=== PATIENT | female | born 1980 ===

== ENCOUNTER 2020-09-30 09:23 | Inpatient (IN) | payer OTHER ==
[2020-09-30] MEDS ORDERED: CITRIC ACID/SODIUM CITRATE 30 ML UNIT-DOSE CUP PO ONE ×2 (11:00→13:21)
[2020-09-30] MEDS ORDERED: ELECTROLYTE-148 SOLN 1,000 ML IV ONE (11:00)
[2020-09-30] MEDS ORDERED: ELECTROLYTE-148 SOLN 1,000 ML IV SCH ×2 (11:00→13:30)
[2020-09-30 12:05] VITALS: BMI 29.2
[2020-09-30] MEDS ORDERED: PHENYLEPHRINE HCL 10 MG/1 ML SINGLE DOSE VIAL ONE (13:07)
[2020-09-30] MEDS ORDERED: ePHEDrine SULFATE 50 MG/1 ML AMPULE ONE (13:08)
[2020-09-30] MEDS ORDERED: PROPOFOL 20 ML ONE (13:08)
[2020-09-30] MEDS ORDERED: SUCCINYLCHOLINE CHLORIDE 200 MG/10 ML SYRINGE ONE (13:08)
[2020-09-30] MEDS ORDERED: morphine SULFATE/PF 0.5 MG/ML (2cc Syringe - QUVA) ONE (13:08)
[2020-09-30] MEDS ORDERED: ELECTROLYTE-148 SOLN 500 ML IV ONE (13:20)
[2020-09-30] MEDS ORDERED: morphine SULFATE/PF 0.5 MG/ML (2cc Syringe - QUVA) SPIN ONE (13:45)
[2020-09-30] MEDS ORDERED: OXYTOCIN 10 UNITS/ML VIAL ONE (14:04)
[2020-09-30] MEDS ORDERED: ceFAZolin SODIUM 1 GM VIAL ONE (14:04)
[2020-09-30] MEDS ORDERED: OXYTOCIN 20 UNITS in 0.9% NS 20 UNIT/1,000 ML INFUS.BAG IV ONE (14:59)
[2020-09-30] MEDS ORDERED: ONDANSETRON 4 MG/2 ML VIAL IVPUSH PRN (15:07)
[2020-09-30] MEDS ORDERED: SENNOSIDES/DOCUSATE COMBO (SENNA PLUS) TABLET (UD) PO PRN (15:37)
[2020-09-30] MEDS ORDERED: IBUPROFEN 800 MG/8 ML IJ IVPB PRN (15:37)
[2020-09-30] MEDS ORDERED: METHYLERGONOVINE MALEATE 0.2 MG/1 ML AMP IM PRN (15:37)
[2020-09-30] MEDS ORDERED: oxyCODONE HCL 5 MG TABLET PO PRN ×2 (15:37)
[2020-09-30] MEDS ORDERED: OXYTOCIN 20 UNITS in 0.9% NS 20 UNIT/1,000 ML INFUS.BAG IV SCH (15:45)
[2020-10-01] MEDS: SIMETHICONE 80 MG TAB.CHEW (FP) PO PRN ×2 (08:15→20:35)
[2020-10-01] MEDS: IBUPROFEN 600 MG TABLET (FP) PO PRN ×2 (08:15→20:36)
[2020-10-01] MEDS: ACETAMINOPHEN 325 MG TABLET (FP) PO PRN ×2 (08:16→20:35)
[2020-10-01 09:15] LABS: BASO % 0.1 % (0-2.0); EOS % 0.1 % (0-4.5); HEMATOCRIT 34.7 % (32.4-45.2); HEMOGLOBIN 11.6 GM/dL (10.7-15.3); LYMPH % 11.9 % (8-40); MCHC 33.4 g/dl (32.0-36.0); MEAN CELL VOLUME 89.9 fl (80-96); MEAN PLT VOLUME 8.7 fl (7.5-11.1); MONO % 3.6 % (3.8-10.2); NEUT % 84.3 % (42.8-82.8); PLATELET COUNT 207 10^3/uL (134-434); RBC 3.85 M/mm3 (3.60-5.2); RDW 13.7 % (11.6-15.6); WHITE BLOOD COUNT 15.1 K/mm3 (4.0-10.0)
[2020-10-01] MEDS: PRENATAL VITAMINS W/ FOLIC ACID TABLET (FP) PO SCH (09:25)
[2020-10-01] MEDS ORDERED: LABETALOL HCL 100 MG TABLET (FP) PO SCH (10:00)
[2020-10-01] MEDS ORDERED: BISACODYL 10 MG SUPP.RECT RC PRN (15:37)
[2020-10-02] MEDS: PRENATAL VITAMINS W/ FOLIC ACID TABLET (FP) PO SCH (09:11)
[2020-10-02] MEDS: IBUPROFEN 600 MG TABLET (FP) PO PRN (09:11)
[2020-10-02] MEDS: ACETAMINOPHEN 325 MG TABLET (FP) PO PRN (09:12)
[2020-10-02 10:06] VITALS: BP 128/64; PULSE 101; TEMP 98.3
== END 2020-10-02 14:55 | disposition home or self-care (01) | DRG 783 ==
LOC: JLDR 09:23 → J3W 17:10
PROVIDERS: ADMIT Obstetrics & Gynecology; ATTEND Obstetrics & Gynecology
PROC: 10D00Z1 Extraction of Products of Conception, Low, Open Approach (ICD-10-PCS; principal; 2020-09-30)
PROC: 0UL70ZZ Occlusion of Bilateral Fallopian Tubes, Open Approach (ICD-10-PCS; 2020-09-30)
DX: O34.219 Maternal care for unspecified type scar from previous cesarean delivery (principal); K83.1 Obstruction of bile duct; O26.62 Liver and biliary tract disorders in childbirth; O13.3 Gestational [pregnancy-induced] hypertension without significant proteinuria, third trimester; O32.1XX0 Maternal care for breech presentation, not applicable or unspecified; Z3A.38 38 weeks gestation of pregnancy; Z37.0 Single live birth; Z30.2 Encounter for sterilization
CPT/HCPCS: 36415; 85025; 86850; 86900; 86901; 88302-TC; 88307-TC

== ENCOUNTER 2021-06-29 16:35 | Day surgery (SDC) | payer OTHER ==
[2021-06-29 17:00] VITALS: BMI 27.4
[2021-06-29] MEDS ORDERED: ONDANSETRON 4 MG/2 ML VIAL IVPUSH ONE (17:15)
[2021-06-29] MEDS ORDERED: LACTATED RINGERS SOLUTION 1000 ML INFUS.BAG IV ONE (17:15)
[2021-06-29] MEDS ORDERED: morphine CARPU-JECT 4 MG/1 ML DISP.SYRIN IVPUSH ONE (17:15)
[2021-06-29] MEDS ORDERED: ACETAMINOPHEN 1000 MG/100 ML BAG IVPB ONE (17:15)
[2021-06-29] MEDS ORDERED: morphine SULFATE 4 MG/ML VIAL ONE (17:24)
[2021-06-29] MEDS ORDERED: ACETAMINOPHEN INJECTION 100 ML IVPB ONE (17:24)
[2021-06-29] MEDS ORDERED: ONDANSETRON 4 MG/2 ML VIAL ONE (17:25)
[2021-06-29 18:24] LABS: BASO % 0.2 % (0-2.0); EOS % 0.2 % (0-4.5); HEMOGLOBIN 14.6 GM/dL (10.7-15.3); MCH 28.8 pg (25.7-33.7); MCHC 32.5 g/dl (32.0-36.0); MEAN CELL VOLUME 88.6 fl (80-96); MEAN PLT VOLUME 8.9 fl (7.5-11.1); MONO % 3.1 % (3.8-10.2); NEUT % 86.5 % (42.8-82.8); PLATELET COUNT 296 10^3/uL (134-434); RBC 5.07 M/mm3 (3.60-5.2); RDW 13.7 % (11.6-15.6); WHITE BLOOD COUNT 13.2 K/mm3 (4.0-10.0)
[2021-06-29 18:35] LABS: INR 0.97 (0.83-1.09); PROTHROMBIN TIME (PATIENT) 11.1 SEC (9.7-13.0)
[2021-06-29 18:37] LABS: ACTIVATED PTT 23.5 SECONDS (25.2-36.5)
[2021-06-29 18:45] LABS: CALCIUM 9.8 mg/dL (8.5-10.1)
[2021-06-29 18:46] LABS: ALBUMIN 4.5 g/dl (3.4-5.0); BLOOD UREA NITROGEN 14.1 mg/dL (7-18)
[2021-06-29 18:48] LABS: CREATININE 0.7 mg/dL (0.55-1.3)
[2021-06-29 18:49] LABS: TOT PROT 7.9 g/dl (6.4-8.2)
[2021-06-29 18:50] LABS: BILIRUBIN,TOTAL 0.3 mg/dL (0.2-1)
[2021-06-29] MEDS ORDERED: morphine CARPU-JECT 2 MG/1 ML DISP.SYRIN IVPUSH ONE (19:32)
[2021-06-29] MEDS ORDERED: methylPREDNISolone 8 MG TABLET PO ONE (20:18)
[2021-06-29] MEDS ORDERED: CEFTRIAXONE 1,000 MG in DEXTROSE 5%-WATER - 50 ML IVPB ONE (20:36)
[2021-06-29] MEDS ORDERED: CEFTRIAXONE 1 GM/50 ML BAG ONE (20:50)
[2021-06-29] MEDS ORDERED: LACTATED RINGERS SOLUTION 1,000 ML IV SCH (21:45)
[2021-06-30] MEDS ORDERED: BUPIVACAINE HCL/PF 0.5% (5MG/ML) 10 ML VIAL ONE (08:04)
[2021-06-30 09:10] LABS: BASO % 0.3 % (0-2.0); EOS % 0.2 % (0-4.5); HEMATOCRIT 39.4 % (32.4-45.2); HEMOGLOBIN 13.2 GM/dL (10.7-15.3); LYMPH % 14.5 % (8-40); MCH 29.2 pg (25.7-33.7); MCHC 33.6 g/dl (32.0-36.0); MEAN CELL VOLUME 86.9 fl (80-96); MEAN PLT VOLUME 8.4 fl (7.5-11.1); MONO % 6.7 % (3.8-10.2); NEUT % 78.3 % (42.8-82.8); PLATELET COUNT 245 10^3/uL (134-434); RBC 4.53 M/mm3 (3.60-5.2)
[2021-06-30 10:09] LABS: BLOOD UREA NITROGEN 10.5 mg/dL (7-18)
[2021-06-30 10:10] LABS: MAGNESIUM 2.1 mg/dL (1.8-2.4)
[2021-06-30 10:11] LABS: BILIRUBIN,TOTAL 0.7 mg/dL (0.2-1)
[2021-06-30 10:12] LABS: CREATININE 0.6 mg/dL (0.55-1.3); PHOSPHOROUS 3.5 mg/dL (2.5-4.9); TOT PROT 6.2 g/dl (6.4-8.2)
[2021-06-30 10:19] LABS: ALBUMIN 3.4 g/dl (3.4-5.0)
[2021-06-30] MEDS ORDERED: PROPOFOL 20 ML ONE ×3 (10:49→12:00)
[2021-06-30] MEDS ORDERED: SUCCINYLCHOLINE CHLORIDE 200 MG/10 ML SYRINGE ONE (10:49)
[2021-06-30] MEDS ORDERED: MIDAZOLAM HCL 2 MG/2 ML SINGLE DOSE VIAL ONE ×2 (10:50)
[2021-06-30] MEDS ORDERED: ROCURONIUM BROMIDE 100 MG/10 ML VIAL ONE (11:06)
[2021-06-30] MEDS ORDERED: ceFAZolin SODIUM 1 GM VIAL IVPB ONE ×2 (11:21)
[2021-06-30] MEDS ORDERED: ONDANSETRON 4 MG/2 ML VIAL ONE (11:26)
[2021-06-30] MEDS ORDERED: ceFAZolin SODIUM 1 GM VIAL ONE (11:26)
[2021-06-30] MEDS ORDERED: LIDOCAINE HCL/PF 2% SDV 5ML VIAL ONE (11:26)
[2021-06-30] MEDS ORDERED: DEXAMETHASONE SOD PHOSPHATE 4 MG/1 ML VIAL ONE (11:26)
[2021-06-30] MEDS ORDERED: NEOSTIGMINE METHYLSULFATE 0.5 MG/ML - 10 ML MDV ONE (12:05)
[2021-06-30 12:08] LABS: SARS-CoV-2 NAA Not Detected (Not Detected)
[2021-06-30] MEDS ORDERED: LIDOCAINE HCL 1%, 10 MG/ML (20ML VIAL) NR ONE ×2 (12:14)
[2021-06-30] MEDS ORDERED: BUPIVACAINE HCL/PF 0.5% (5MG/ML) 10 ML VIAL NR ONE ×2 (12:14)
[2021-06-30] MEDS ORDERED: LACTATED RINGERS SOLUTION 1,000 ML IV SCH (12:45)
[2021-06-30] MEDS: LABETALOL HCL 100 MG TABLET (FP) PO SCH (22:01)
[2021-07-01 09:30] LABS: HEMATOCRIT 38.7 % (32.4-45.2); HEMOGLOBIN 13.2 GM/dL (10.7-15.3); MCH 29.9 pg (25.7-33.7); MCHC 34.1 g/dl (32.0-36.0); MEAN CELL VOLUME 87.5 fl (80-96); MEAN PLT VOLUME 8.4 fl (7.5-11.1); PLATELET COUNT 239 10^3/uL (134-434); RBC 4.42 M/mm3 (3.60-5.2); RDW 13.4 % (11.6-15.6); WHITE BLOOD COUNT 9.9 K/mm3 (4.0-10.0)
[2021-07-01] MEDS: LABETALOL HCL 100 MG TABLET (FP) PO SCH (09:32)
[2021-07-01 09:35] VITALS: BP 113/55; PULSE 76; TEMP 98.9
[2021-07-01] MEDS ORDERED: PRENATAL VITAMINS W/ FOLIC ACID TABLET (FP) PO SCH (10:00)
[2021-07-01 10:59] LABS: CALCIUM 8.5 mg/dL (8.5-10.1)
[2021-07-01 11:00] LABS: ALBUMIN 3.3 g/dl (3.4-5.0)
[2021-07-01 11:03] LABS: CREATININE 0.7 mg/dL (0.55-1.3)
[2021-07-01 11:05] LABS: BILIRUBIN,TOTAL 0.8 mg/dL (0.2-1); TOT PROT 6.1 g/dl (6.4-8.2)
== END 2021-07-01 15:15 | disposition home or self-care (01) ==
LOC: JER 16:35 → JASUSAT 20:43 → JERBED 20:43 → UNDOADMIN 20:43 → SUATTDRO 20:43 → JERBED 06-30 10:19 → J6S 06-30 10:19 → JASUSAT 07-01 15:15
PROVIDERS: ATTEND Internal Medicine
PROC: 0FT44ZZ Resection of Gallbladder, Percutaneous Endoscopic Approach (ICD-10-PCS; principal; 2021-06-29)
DX: K80.00 Calculus of gallbladder with acute cholecystitis without obstruction (principal)
CPT/HCPCS: 36415; 76705-TC; 80053; 83690; 83735; 84100; 84703; 85025; 85027; 85610; 85730; 86850; 86900; 86901; 88304-TC; 93005; 93010; 94010; 94760; 99285-25; C9803-CS; U0003; U0005